=== PATIENT | female | born 1930 | race Caucasian/White ===

== ENCOUNTER 2017-12-19 13:59 | Emergency (ER) | payer MEDICARE, BC ==
[2017-12-19 14:02] VITALS: BP 137/90
[2017-12-19] MEDS ORDERED: Aspirin 81 MG Tab.Chew ONE (14:43)
--- NOTE | 2017-12-19 14:53 | EDM.PDOC ---
ED HPI GENERAL MEDICAL PROBLEM - General Chief Complaint: General Stated Complaint: Weakness Time Seen by Provider: 12/19/17 14:00 Source of Information: Reports: Patient, Provider History Limitations: Reports: No Limitations - History of Present Illness INITIAL COMMENTS - FREE TEXT/NARRATIVE: Patient is a 87-year-old female who is seen in the ER from [facility] with strokelike symptoms nurses state that her last fine was at 12 no then she started having slurred speech droopiness of the right side of the mouth with drooling and right-sided weakness this resolve by the time that she got here at this time her NIH score is 0 we went ahead and got a CAT scan which was negative for bleed and discuss patient care with neurologist at [place] and agreed to take we will go ahead and transfer her to [facility]. Onset: Sudden Duration: Hour(s): (2 hours ago), Resolved Prior to Arrival Location: Reports: Face, Generalized Improves with: Reports: Rest (Result prior to getting) Worsens with: Reports: None Context: Reports: Activity Associated Symptoms: Reports: No Other Symptoms, Other (History of early onset dementia) - Related Data Allergies Allergy/AdvReac Type Severity Reaction Status Date / Time No Known Allergies Allergy Verified 03/07/16 10:13 Home Meds: Home Meds Acetaminophen [Tylenol] 325 mg PO Q4H PRN 06/12/13 [History] Amoxicillin 500 mg PO ONETIME 06/12/13 [History] Cranberry 500 mg PO DAILY 06/12/13 [History] Fish Oil/Eldred-3 Fatty Acids [Fish Oil] 1,000 mg PO DAILY 06/12/13 [History] Furosemide 20 mg PO DAILY 06/12/13 [History] Insulin Glarg,Human.Rec.Analog [Lantus] 40 units SUBCUT BID 06/12/13 [History] Insulin Lispro [Humalog] 35 units SUBCUT TID 06/12/13 [History] Levothyroxine Sodium [Synthroid] 75 mcg PO DAILY 06/12/13 [History] Losartan Potassium 25 mg PO DAILY 06/12/13 [History] Memantine HCl [Namenda] 10 mg PO BID 06/12/13 [History] Pramipexole Di-HCl [Mirapex] 0.25 mg PO BID 06/12/13 [History] Calcium Citrate/Vitamin D3 [Calcium Citrate + D] 2 tab PO DAILY 03/06/16 [ History] Donepezil HCl [Aricept] 10 mg PO BEDTIME 03/06/16 [History] Ferrous Sulfate 325 mg PO DAILY 03/06/16 [History] Multivit-Min/FA/Lycopene/Lut [Centrum Silver Tablet] 1 tab PO DAILY 03/06/16 [ History] PEG 400/Hypromellose/Glycerin [Artificial Tears Drops] 15 ml EYEBOTH Q4HR PRN [History] Hydrochlorothiazide 25 mg PO DAILY 03/07/16 [History] Hydrocodone/Acetaminophen [Hydrocodon-Acetaminophen 5-325] 1 each PO BEDTIME 05/22 [History] Hydrocodone/Acetaminophen [Hydrocodon-Acetaminophen 5-325] 1 each PO Q4H PRN 05/22 [History] Omeprazole Magnesium [Prilosec Otc] 20 mg PO BID 03/07/16 [History] Tolnaftate [Tinactin] 1 applic TP BID PRN 03/07/16 [History] Past Medical History HEENT History: Reports: Impaired Vision Cardiovascular History: Reports: Heart Failure, Hypertension Other Cardiovascular History: Atherosclerosis of Aorta, Chronic Edema Respiratory History: Reports: COPD Gastrointestinal History: Reports: Colon Polyp, GI Bleed, Hemorrhoids Musculoskeletal History: Reports: Arthritis Other Musculoskeletal History: DISH-diffuse idiopathic skeletal hyperostosis Psychiatric History: Reports: Psychosis Endocrine/Metabolic History: Reports: Diabetes, Type II Hematologic History: Reports: Anemia, Iron Deficiency - Infectious Disease History Infectious Disease History: Reports: MRSA - Past Surgical History HEENT Surgical History: Reports: Cataract Surgery Musculoskeletal Surgical History: Reports: Knee Replacement ED ROS GENERAL - Review of Systems Review Of Systems: See Below Constitutional: Reports: Weakness (Right side result) HEENT: Reports: No Symptoms Respiratory: Reports: No Symptoms Cardiovascular: Reports: No Symptoms Endocrine: Reports: No Symptoms GI/Abdominal: Reports: No Symptoms : Reports: No Symptoms Musculoskeletal: Reports: Other (Right-sided weakness) Skin: Reports: No Symptoms Neurological: Reports: Weakness (Right side) Psychiatric: Reports: No Symptoms Hematologic/Lymphatic: Reports: No Symptoms Immunologic: Reports: No Symptoms ED EXAM, GENERAL - Physical Exam Exam: See Below Exam Limited By: Altered Mental Status General Appearance: Alert, WD/WN, No Apparent Distress, Anxious Ears: Normal External Exam, Normal Canal, Hearing Grossly Normal, Normal TMs Ear Exam: Bilateral Ear: Auricle Normal, Canal Normal, TM normal Nose: Normal Inspection, Normal Mucosa, No Blood Throat/Mouth: Normal Inspection, Normal Lips, Normal Teeth, Normal Gums, Normal Oropharynx, Normal Voice, No Airway Compromise Head: Atraumatic Neck: Normal Inspection, Supple, Non-Tender, Full Range of Motion Respiratory/Chest: No Respiratory Distress, Lungs Clear, Normal Breath Sounds, No Accessory Muscle Use, Chest Non-Tender Cardiovascular: Regular Rate, Rhythm, Systolic Murmur (3/6 systolic murmur). No : No Edema GI/Abdominal: Normal Bowel Sounds, Soft, Non-Tender, No Organomegaly, No Distention, No Abnormal Bruit, No Mass (Female) Exam: Deferred Rectal (Female) Exam: Deferred Back Exam: Decreased Range of Motion Extremities: Limited Range of Motion Neurological: Alert, Oriented, CN II-XII Intact Psychiatric: Depressed Mood, Flat Affect Skin Exam: Warm, Dry Course - Vital Signs Last Recorded V/S: Last Vital Signs Temp 97.6 F 12/19/17 14:01 Pulse 81 12/19/17 14:01 Resp 18 12/19/17 14:01 BP 137/90 12/19/17 14:01 Pulse Ox 97 12/19/17 14:01 - Orders/Labs/Meds Orders: Active Orders 24 hr Category Date Time Status Chest 1V Frontal [CR] Routine Exams 12/19/17 Taken Head wo Cont [CT] Routine Exams 12/19/17 Taken CBC WITH AUTO DIFF [HEME] Stat Lab 12/19/17 14:16 Received CKMB [CHEM] Stat Lab 12/19/17 14:16 Received COMPREHENSIVE METABOLIC PN,CMP [CHEM] Stat Lab 12/19/17 14:16 Received CREATINE KINASE,CK [CHEM] Stat Lab 12/19/17 14:16 Received D-DIMER QUANTITATIVE [COAG] Stat Lab 12/19/17 14:16 Received INR,PT,PROTHROMBIN TIME [COAG] Stat Lab 12/19/17 14:16 Received MAGNESIUM [CHEM] Stat Lab 12/19/17 14:16 Received PRO B-TYPE NATRIUR PEPT,BNPPRO [CHEM] Stat Lab 12/19/17 14:16 Received PROLACTIN [REF] Stat Lab 12/19/17 14:16 Received PTT,PARTIAL THROMBOPLSTIN TIME [COAG] Stat Lab 12/19/17 14:16 Received TROPONIN I [CHEM] Stat Lab 12/19/17 14:16 Received Meds: Medications Discontinued Medications Generic Name Dose Route Start Last Admin Trade Name Nathan PRN Reason Stop Dose Admin Aspirin Confirm 12/19/17 14:43 Aspirin Administered 12/19/17 14:44 Dose 324 mg .ROUTE .STK-MED ONE Departure - Departure Time of Disposition: 14:35 Disposition: Home, Self-Care 01 Clinical Impression: TIA (transient ischemic attack), Hyperglycemia - Discharge Information *PRESCRIPTION DRUG MONITORING PROGRAM REVIEWED*: Not Applicable *COPY OF PRESCRIPTION DRUG MONITORING REPORT IN PATIENT ELENI: Not Applicable Instructions: Stroke Prevention, [id number] Referrals: Jesse Michelle MD [Primary Care Provider] - Care Plan Goals: Patient evaluated discuss with neurologist risk of stroke is 8.4% we will go ahead and transfer her to [place] primary care for workup. - My Orders Last 24 Hours: My Active Orders 12/19/17 Chest 1V Frontal [CR] Routine Head wo Cont [CT] Routine 12/19/17 14:16 CBC WITH AUTO DIFF [HEME] Stat CKMB [CHEM] Stat COMPREHENSIVE METABOLIC PN,CMP [CHEM] Stat CREATINE KINASE,CK [CHEM] Stat D-DIMER QUANTITATIVE [COAG] Stat INR,PT,PROTHROMBIN TIME [COAG] Stat MAGNESIUM [CHEM] Stat PRO B-TYPE NATRIUR PEPT,BNPPRO [CHEM] Stat PROLACTIN [REF] Stat PTT,PARTIAL THROMBOPLSTIN TIME [COAG] Stat TROPONIN I [CHEM] Stat - Assessment/Plan Last 24 Hours: My Active Orders 12/19/17 Chest 1V Frontal [CR] Routine Head wo Cont [CT] Routine 12/19/17 14:16 CBC WITH AUTO DIFF [HEME] Stat CKMB [CHEM] Stat COMPREHENSIVE METABOLIC PN,CMP [CHEM] Stat CREATINE KINASE,CK [CHEM] Stat D-DIMER QUANTITATIVE [COAG] Stat INR,PT,PROTHROMBIN TIME [COAG] Stat MAGNESIUM [CHEM] Stat PRO B-TYPE NATRIUR PEPT,BNPPRO [CHEM] Stat PROLACTIN [REF] Stat PTT,PARTIAL THROMBOPLSTIN TIME [COAG] Stat TROPONIN I [CHEM] Stat
[2017-12-19 15:37] LABS: CHLORIDE,CL 101 mmol/L (98-107); SODIUM,NA 141 mmol/L (136-145)
== END 2017-12-19 16:40 ==
LOC: LL.ED 13:59
DX: G45.9 Transient cerebral ischemic attack, unspecified (principal); E11.65 Type 2 diabetes mellitus with hyperglycemia; J44.9 Chronic obstructive pulmonary disease, unspecified; I11.0 Hypertensive heart disease with heart failure; I50.9 Heart failure, unspecified; Z79.899 Other long term (current) drug therapy
CPT/HCPCS: 36000; 36415; 70450; 71045; 80053; 82550; 82553; 83735; 83880; 84146; 84484; 85025; 85379; 85610; 85730; 99285

== ENCOUNTER 2019-03-27 12:28 | Emergency (ER) | payer MEDICARE, BC ==
[2019-03-27] MEDS ORDERED: Sodium Chloride 0.9% 10 ML Syringe FLUSH PRN (12:30)
--- NOTE | 2019-03-27 12:30 | EDM.PDOC ---
ED HPI GENERAL MEDICAL PROBLEM - General Chief Complaint: Gastrointestinal Problem Stated Complaint: GI bleed Time Seen by Provider: 03/27/19 12:30 Source of Information: Reports: Patient, [facility] Records, Old Records ([facility] EMR. No paper hospital chart available.) History Limitations: Reports: Altered Mental Status - History of Present Illness INITIAL COMMENTS - FREE TEXT/NARRATIVE: The patient was brought to the emergency room via transport vehicle from [facility] for evaluation of sudden onset syncopal episode at 08: 00 hours this morning with nursing staff relating this to a vasovagal episode while the patient was on the toilet. Note, however, the patient began having some significant melena and gross hemoptysis with patient refusing transport to this facility this morning until her son requested transfer prior to arrival to our hospital. She is a somewhat poor historian secondary to her baseline organic brain syndrome, which has apparently been stable. She has had some moderate anorexia during the last several months with patient only receiving antacids currently despite distant history of a large gastric ulcer and GI bleed as below. Note current comfort care status. Blood pressure was somewhat decreased prior to patient transfer, including a blood pressure of 85/55, with no apparent recent fall, injury, etc. from the syncopal episode as above. Only limited information received from the sn[facility] both from previous verbal report from the sn[facility] records. No apparent recent chest pain or anginal type symptoms. Patient also denies any recent cough, fever, dyspnea, etc.. She denies any current significant pain or discomfort? Onset: Today, Sudden Onset Date: 03/27/19 Onset Time: 08:00 Duration: Constant Location: Reports: Abdomen. Denies: Head, Face, Neck, Chest, Back, Upper Extremity, Left, Upper Extremity, Right, Radiates to Quality: Reports: Same as Previous Episode Severity: Moderate Improves with: Reports: None Worsens with: Reports: None Context: Reports: Other (As above). Denies: Sick Contact, Trauma Associated Symptoms: Reports: Confusion (Stable as above), Loss of Appetite, Nausea/Vomiting, Syncope. 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: Other (see below) (None) - Related Data Allergies Allergy/AdvReac Type Severity Reaction Status Date / Time No Known Allergies Allergy Verified 03/07/16 10:13 Home Meds: Home Meds Acetaminophen [Tylenol] 325 mg PO Q4H PRN 06/12/13 [History] Amoxicillin 500 mg PO ONETIME 06/12/13 [History] Cranberry 500 mg PO DAILY 06/12/13 [History] Fish Oil/Mcdade-3 Fatty Acids [Fish Oil] 1,000 mg PO DAILY 06/12/13 [History] Furosemide 20 mg PO DAILY 06/12/13 [History] Insulin Glarg,Human.Rec.Analog [Lantus] 40 units SUBCUT BID 06/12/13 [History] Insulin Lispro [Humalog] 35 units SUBCUT TID 06/12/13 [History] Levothyroxine Sodium [Synthroid] 75 mcg PO DAILY 06/12/13 [History] Losartan Potassium 25 mg PO DAILY 06/12/13 [History] Memantine HCl [Namenda] 10 mg PO BID 06/12/13 [History] Pramipexole Di-HCl [Mirapex] 0.25 mg PO BID 06/12/13 [History] Calcium Citrate/Vitamin D3 [Calcium Citrate + D] 2 tab PO DAILY 03/06/16 [ History] Donepezil HCl [Aricept] 10 mg PO BEDTIME 03/06/16 [History] Ferrous Sulfate 325 mg PO DAILY 03/06/16 [History] Multivit-Min/FA/Lycopen/Lutein [Centrum Silver Tablet] 1 tab PO DAILY 03/06/16 [ History] PEG 400/Hypromellose/Glycerin [Artificial Tears Drops] 15 ml EYEBOTH Q4HR PRN [History] Hydrochlorothiazide 25 mg PO DAILY 03/07/16 [History] Hydrocodone/Acetaminophen [Hydrocodon-Acetaminophen 5-325] 1 each PO BEDTIME 05/22 [History] Hydrocodone/Acetaminophen [Hydrocodon-Acetaminophen 5-325] 1 each PO Q4H PRN 05/22 [History] Omeprazole Magnesium [Prilosec Otc] 20 mg PO BID 03/07/16 [History] Tolnaftate [Tinactin] 1 applic TP BID PRN 03/07/16 [History] Past Medical History HEENT History: Reports: Cataract, Impaired Vision, Other (See Below) Other HEENT History: Patient wears glasses. Dry eye syndrome. Cardiovascular History: Reports: Afib, Arrhythmia, CAD, Cardiomyopathy, Heart Failure, Heart Murmur, High Cholesterol, Hypertension. Denies: Aneurysm Other Cardiovascular History: Atherosclerosis of the abdominal Aorta no known previous aneurysm, Chronic dependent Edema/lymphedema. Lateral wall cardiac ischemia by resting EKG. First-degree AV block. Aortic valve stenosis and mitral valve insufficiency by clinical exam. Recurrent diastolic CHF. Respiratory History: Reports: COPD, Intubation, Previous. Denies: Intubation, Difficult Gastrointestinal History: Reports: Chronic Constipation, Colon Polyp, GERD, GI Bleed, Hemorrhoids, Hiatal Hernia, PUD, Other (See Below) Other Gastrointestinal History: Small hiatal hernia and umbilical hernia. 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 Psychiatric History: Reports: Alzheimers Disease, Anxiety, Dementia, Depression , Psychosis, Other (See Below) Other Psychiatric History: Vascular dementia as above. Endocrine/Metabolic History: Reports: Diabetes, Type II, Hypothyroidism, IDDM, Obesity/BMI 30+, Other (See Below) Other Endocrine/Metabolic History: Hypoalbuminemia. Hypokalemia. Hematologic History: Reports: Anemia, Iron Deficiency - Infectious Disease History Infectious Disease History: Reports: MRSA - Past Surgical History HEENT Surgical History: Reports: Cataract Surgery, Oral Surgery, Other (See Below) Other HEENT Surgeries/Procedures: Multiple tooth extractions. Cardiovascular Surgical History: Reports: Other (See Below) Other Cardiovascular Surgeries/Procedures: Loop recorder. GI Surgical History: Reports: Appendectomy, Cholecystectomy, Colonoscopy, EGD, Polypectomy, Other (See Below) Other GI Surgeries/Procedures: Recurrent polypectomies as above. Flexible sigmoidoscopy with rectal polyp removal on 06/22/13. Follow-up colonoscopy with polyp excision on 09/04/13. EGD with concomitant colonoscopy on 03/07/16 with large gastric ulcer with secondary upper GI bleed with additional removal of 2 colonic polyps from the cecum and ascending colon with pathology reports as above. Musculoskeletal Surgical History: Reports: Knee Replacement, Other (See Below) Other Musculoskeletal Surgeries/Procedures:: Left total knee arthroplasty. - Past Imaging History Past Imaging History: Reports: CAT Scan (CT of the abdomen and pelvis on . CT of the head on 12/19/17 and 05/13/11.), MRI (Of the head in December 2017 with acute CVA as above.), Swallow Study (12/27/17) Social & Family History - Living Situation & Occupation Living situation: Reports: Extended Care Facility ([facility] in [place]) ED ROS GENERAL - Review of Systems Review Of Systems: Unable To Obtain Reason Not Obtained: organic brain syndrome. current illness ED EXAM, GI/ABD - Physical Exam Exam: See Below Exam Limited By: No Limitations General Appearance: Alert, WD/WN, No Apparent Distress Eyes: Bilateral: Normal Appearance (No nystagmus. Patient wearing glasses), EOMI (PERRLA) Ears: Normal External Exam, Normal Canal, Hearing Grossly Normal, Normal TMs Nose: Normal Inspection, Normal Mucosa, No Blood Throat/Mouth: Normal Inspection, Normal Lips, Normal Gums, Normal Oropharynx, Normal Voice, No Airway Compromise. No: Normal Teeth (Multiple missing teeth), Dysphagia, Perioral Cyanosis Head: Atraumatic, Normocephalic. No: Facial Swelling, Facial Tenderness, Sinus Tenderness Neck: Supple, Non-Tender, Full Range of Motion, Carotid Bruit (Moderate bilateral carotid bruits versus transmitted heart sounds). No: Lymphadenopathy (L), Lymphadenopathy (R), Thyromegaly Respiratory/Chest: No Respiratory Distress, No Accessory Muscle Use, Chest Non- Tender, Rales (Moderate diffuse bilateral), Rhonchi (Moderate diffuse). No: Wheezing, Pleural Rub, Retractions Cardiovascular: No Gallop, No JVD, No Rub, Tachycardia (Regular rhythm), Systolic Murmur (3/6 SINDY of the aortic and mitral valves). No: Normal Peripheral Pulses (Pedal pulses difficult to assess secondary to her edema), No Edema (Dependent edema as below), Gallop/S3, Gallop/S4, Extra Beats, Friction Rub GI/Abdominal Exam: No Organomegaly, No Distention, No Mass, Pelvis Stable, Tender (Moderate right upper quadrant palpation pain), Abnormal Bowel Sounds ( Mild diffuse increased bowel sounds not high-pitched in nature), Hernia (3 cm umbilical hernianonincarcerated), Other (Moderate obesity with 23/6 SINDY of the midabdominal region with exam difficult for abdominal aortic aneurysm secondary to obesity). No: Guarding, Rigid, Rebound (Female) Exam: Deferred Rectal (Female) Exam: Black Stool, Bloody Stool, Heme + Stool Back Exam: Full Range of Motion. No: Normal Inspection (Mild scoliosis), CVA Tenderness (L), CVA Tenderness (R), Muscle Spasm, Paraspinal Tenderness, Vertebral Tenderness Extremities: Normal Range of Motion, Pedal Edema (Moderate lymphedema of the lower extremities with nonspecific generalized tenderness), Pallor (Moderate diffuse). No: Non-Tender (As below), William's Sign Neurological: Normal Reflexes (Negative Babinski's), Confused (Stable baseline by history), Slow to Respond (Intermittently with initial brief syncopal episode and initial care with no evidence of seizure activity, etc.) Psychiatric: Anxious (Mild), Depressed Mood (Borderline) Skin Exam: Pallor (Moderate). No: Diaphoretic, Ecchymosis, Jaundice, Petechiae , Wound/Incision Lymphatic: No Adenopathy EKG INTERPRETATION EKG Date: 03/27/19 Time: 12:53 Rhythm: NSR Rate (Beats/Min): 96 Manati: LAD-Left Manati Deviation (Extended left cardiac axis) P-Wave: Present QRS: Other (0.13 seconds representing a new complete bifascicular bundle-branch block) ST-T: Other (Increased prominence of previous T-wave inversion in leads 1 and aVL with additional nonspecific ST changes in these leads) QT: Normal MN/PQ Interval: 0.18 seconds representing resolution of previous degree AV block. Left ventricular hypertrophy by voltage. Comparison: Change From Previous EKG (As above since 12/19/17.) EKG Interpretation Comments: 1. Lateral wall cardiac ischemia 2. New complete bifascicular bundle-branch block 3. History of first-degree AV block 4. Left ventricular hypertrophy by voltage. Course - Vital Signs Last Recorded V/S: Last Vital Signs Temp 36.3 C 03/27/19 13:30 Pulse 95 03/27/19 14:45 Resp 18 03/27/19 14:45 BP 80/60 L 03/27/19 14:45 Pulse Ox 98 03/27/19 14:45 Vital Signs - 24 hr 03/27/19 03/27/19 03/27/19 12:35 12:38 13:00 Temperature [ 35.8 C Oral] Pulse, 100 92 95 Peripheral [ Left Pulse Oximetry] Respiratory 24 H 18 14 Rate Blood Pressure 69/18 L 76/58 L [Right Upper Arm] O2 Sat by Pulse 78 L 92 L 99 Oximetry 03/27/19 03/27/19 03/27/19 13:15 13:30 13:45 Temperature [ 36.3 C Oral] Pulse, 99 90 93 Peripheral [ Left Pulse Oximetry] Respiratory 16 18 16 Rate Blood Pressure 72/38 L 64/39 L 68/41 L [Right Upper Arm] O2 Sat by Pulse 99 98 98 Oximetry 03/27/19 03/27/19 03/27/19 14:00 14:15 14:30 Temperature [ Oral] Pulse, 93 99 97 Peripheral [ Left Pulse Oximetry] Respiratory 18 16 18 Rate Blood Pressure 72/45 L 78/55 L 70/56 L [Right Upper Arm] O2 Sat by Pulse 99 99 99 Oximetry 03/27/19 14:45 Temperature [ Oral] Pulse, 95 Peripheral [ Left Pulse Oximetry] Respiratory 18 Rate Blood Pressure 80/60 L [Right Upper Arm] O2 Sat by Pulse 98 Oximetry - Orders/Labs/Meds Orders: Active Orders 24 hr Category Date Time Status EKG Documentation Completion [RC] ASDIRECTED Care 03/27/19 12:40 Active Oxygen Therapy [RC] CONTINUOUS Care 03/27/19 12:34 Active Peripheral IV Care [RC] . DIRECTED Care 03/27/19 12:31 Active Peripheral IV Care [RC] . DIRECTED Care 03/27/19 12:32 Active Nothing Per Oral Diet [DIET] Diet 03/27/19 Breakfast Active Abdomen Series w Chest 1V [CR] Stat Exams 03/27/19 12:30 Taken Norepinephrine [Levophed] 4 mg Med 03/27/19 14:30 Active Dextrose 5% in Water 246 ml IV TITRATE Sodium Chloride 0.9% [Saline Flush] Med 03/27/19 12:30 Active 10 ml FLUSH ASDIRECTED PRN Blood Culture x2 Reflex Set [OM.PC] Stat Oth 03/27/19 13:52 Ordered Obtain Past Medical Record [OM.PC] Urgent Ot 03/27/19 12:30 Active Peripheral IV Insertion Adult [OM.PC] Stat [facility] 03/27/19 12:30 Ordered Saline Lock Insert [OM.PC] Stat [facility] 03/27/19 13:52 Ordered Severe Sepsis Onset Time [OM.PC] Stat [facility] 03/27/19 13:52 Ordered Transfuse RBC [Transfuse Red Blood Cells] [COMM] [facility] 03/27/19 12:57 Ordered Routine Resuscitation Status Stat [facility] 03/27/19 12:30 Ordered Medication Orders Norepinephrine Bitartrate 4 mg (/ Dextrose/Water) 250 mls @ 7.5 mls/hr IV TITRATE WAYNE; Protocol Sodium Chloride (Saline Flush) 10 ml FLUSH ASDIRECTED PRN PRN Reason: Keep Vein Open Labs: Laboratory Tests 03/27/19 03/27/19 03/27/19 Range/Units 12:50 12:50 12:50 WBC 14.4 H (4.0-10.2) K/uL RBC 2.93 L (3.77-5.09) M/uL Hgb 7.2 L* (11.7-15.5) g/dL Hct 24.8 L* (34.0-46.0) % MCV 84.6 D (84.0-98.0) fL MCH 24.6 L (28.2-33.3) pg MCHC 29.0 L (31.7-36.0) g/dL RDW 17.0 H (11.2-14.1) % Plt Count 330 D (150-350) K/uL Neut % (Auto) 79.0 (45.0-80.0) % Lymph % (Auto) 13.2 (10.0-50.0) % Parker % (Auto) 7.6 (2.0-14.0) % Eos % (Auto) 0.1 (0.0-5.0) % Baso % (Auto) 0.1 (0.0-2.0) % Neut # (Auto) 11.39 H (1.40-7.00) K/uL Lymph # (Auto) 1.91 (0.50-3.50) K/uL Parker # (Auto) 1.09 H (0.00-1.00) K/uL Eos # (Auto) 0.01 (0.00-0.50) K/uL Baso # (Auto) 0.02 (0.00-0.20) K/uL PT 17.4 H (9.5-12.0) SEC INR 1.6 APTT 33.6 H (21.0-31.3) SEC Sodium (136-145) mmol/L Potassium (3.5-5.1) mmol/L Chloride (98-107) mmol/L Carbon Dioxide (21.0-32.0) mmol/L BUN (7-18) mg/dL Creatinine (0.51-1.17) mg/dL Est Cr Clr Drug Dosing Estimated GFR (MDRD) mL/min Glucose (74-106) mg/dL Lactic Acid (0.4-2.0) mmol/L Uric Acid (2.6-7.2) mg/dL Calcium (8.5-10.1) mg/dL Magnesium (1.8-2.4) mg/dL Total Bilirubin (0.2-1.0) mg/dL AST (15-37) U/L ALT (12-78) U/L Alkaline Phosphatase (46-116) IU/L Creatine Kinase (26-308) U/L Creatine Kinase Index (0.0-2.5) % CK-MB (CK-2) (0.00-3.60) ng/mL Troponin I (0.000-0.056) ng/mL NT-Pro-B Natriuret Pep (0-125) pg/mL Total Protein (6.4-8.2) g/dL Albumin (3.4-5.0) g/dL Amylase 37 (25-115) U/L Lipase (73-393) U/L Blood Type Gel Antibody Screen Antibody Identification Crossmatch 03/27/19 03/27/19 03/27/19 Range/Units 12:50 12:50 12:50 WBC (4.0-10.2) K/uL RBC (3.77-5.09) M/uL Hgb (11.7-15.5) g/dL Hct (34.0-46.0) % MCV (84.0-98.0) fL MCH (28.2-33.3) pg MCHC (31.7-36.0) g/dL RDW (11.2-14.1) % Plt Count (150-350) K/uL Neut % (Auto) (45.0-80.0) % Lymph % (Auto) (10.0-50.0) % Parker % (Auto) (2.0-14.0) % Eos % (Auto) (0.0-5.0) % Baso % (Auto) (0.0-2.0) % Neut # (Auto) (1.40-7.00) K/uL Lymph # (Auto) (0.50-3.50) K/uL Parker # (Auto) (0.00-1.00) K/uL Eos # (Auto) (0.00-0.50) K/uL Baso # (Auto) (0.00-0.20) K/uL PT (9.5-12.0) SEC INR APTT (21.0-31.3) SEC Sodium 133 L (136-145) mmol/L Potassium 4.7 (3.5-5.1) mmol/L Chloride 93 L (98-107) mmol/L Carbon Dioxide 25.3 (21.0-32.0) mmol/L BUN 62 H D (7-18) mg/dL Creatinine 1.97 H (0.51-1.17) mg/dL Est Cr Clr Drug Dosing TNP Estimated GFR (MDRD) 24 mL/min Glucose 258 H (74-106) mg/dL Lactic Acid 6.3 H (0.4-2.0) mmol/L Uric Acid 9.9 H (2.6-7.2) mg/dL Calcium 9.0 (8.5-10.1) mg/dL Magnesium 2.4 (1.8-2.4) mg/dL Total Bilirubin 0.4 (0.2-1.0) mg/dL AST 26 (15-37) U/L ALT 23 (12-78) U/L Alkaline Phosphatase 96 (46-116) IU/L Creatine Kinase (26-308) U/L Creatine Kinase Index (0.0-2.5) % CK-MB (CK-2) (0.00-3.60) ng/mL Troponin I (0.000-0.056) ng/mL NT-Pro-B Natriuret Pep (0-125) pg/mL Total Protein 7.1 (6.4-8.2) g/dL Albumin 2.4 L (3.4-5.0) g/dL Amylase (25-115) U/L Lipase 161 (73-393) U/L Blood Type A POSITIVE Gel Antibody Screen Positive Antibody Identification Cancelled Crossmatch See Detail 03/27/19 03/27/19 Range/Units 12:50 13:00 WBC (4.0-10.2) K/uL RBC (3.77-5.09) M/uL Hgb (11.7-15.5) g/dL Hct (34.0-46.0) % MCV (84.0-98.0) fL MCH (28.2-33.3) pg MCHC (31.7-36.0) g/dL RDW (11.2-14.1) % Plt Count (150-350) K/uL Neut % (Auto) (45.0-80.0) % Lymph % (Auto) (10.0-50.0) % Parker % (Auto) (2.0-14.0) % Eos % (Auto) (0.0-5.0) % Baso % (Auto) (0.0-2.0) % Neut # (Auto) (1.40-7.00) K/uL Lymph # (Auto) (0.50-3.50) K/uL Parker # (Auto) (0.00-1.00) K/uL Eos # (Auto) (0.00-0.50) K/uL Baso # (Auto) (0.00-0.20) K/uL PT (9.5-12.0) SEC INR APTT (21.0-31.3) SEC Sodium (136-145) mmol/L Potassium (3.5-5.1) mmol/L Chloride (98-107) mmol/L Carbon Dioxide (21.0-32.0) mmol/L BUN (7-18) mg/dL Creatinine (0.51-1.17) mg/dL Est Cr Clr Drug Dosing Estimated GFR (MDRD) mL/min Glucose (74-106) mg/dL Lactic Acid (0.4-2.0) mmol/L Uric Acid (2.6-7.2) mg/dL Calcium (8.5-10.1) mg/dL Magnesium (1.8-2.4) mg/dL Total Bilirubin (0.2-1.0) mg/dL AST (15-37) U/L ALT (12-78) U/L Alkaline Phosphatase (46-116) IU/L Creatine Kinase 198 (26-308) U/L Creatine Kinase Index 1.1 (0.0-2.5) % CK-MB (CK-2) 2.10 (0.00-3.60) ng/mL Troponin I 0.094 H* (0.000-0.056) ng/mL NT-Pro-B Natriuret Pep 663 H (0-125) pg/mL Total Protein (6.4-8.2) g/dL Albumin (3.4-5.0) g/dL Amylase (25-115) U/L Lipase (73-393) U/L Blood Type Gel Antibody Screen Antibody Identification Crossmatch Microbiology 03/27/19 13:15 Stool Occult Blood (VIRGIL) - Final Stool / Feces Hemoccult positive Meds: Medications Generic Name Dose Route Start Last Admin Trade Name Freq PRN Reason Stop Dose Admin Norepinephrine Bitartrate 4 mg 250 mls @ 7.5 mls/hr 03/27/19 14:30 / Dextrose/Water IV TITRATE WAYNE Protocol 2 MCG/MIN Sodium Chloride 10 ml 03/27/19 12:30 Saline Flush FLUSH ASDIRECTED PRN Keep Vein Open Discontinued Medications Generic Name Dose Route Start Last Admin Trade Name Freq PRN Reason Stop Dose Admin Famotidine 40 mg 03/27/19 12:30 03/27/19 12:51 Pepcid IVPUSH 03/27/19 12:31 40 mg ONETIME ONE Administration Lactated Ringer's 1,000 mls @ 999 mls/hr 03/27/19 12:30 03/27/19 12:57 Ringers, Lactated IV 03/27/19 13:30 Not Given .BOLUS ONE Phytonadione 10 mg/ Sodium 51 mls @ 100 mls/hr 03/27/19 12:32 03/27/19 12:51 Chloride IV 03/27/19 13:02 100 mls/hr NOW ONE Administration Sodium Chloride 1,000 mls @ 999 mls/hr 03/27/19 12:38 03/27/19 12:50 Normal Saline IV 03/27/19 13:38 999 mls/hr .BOLUS ONE Administration Ceftriaxone Sodium 1 gm/ 100 mls @ 200 mls/hr 03/27/19 13:52 Sodium Chloride IV 03/27/19 14:21 STAT ONE Vancomycin HCl 1 gm/ Sodium 250 mls @ 165 mls/hr 03/27/19 13:52 Chloride IV 03/27/19 15:22 ONETIME ONE Lidocaine HCl Confirm 03/27/19 14:12 Lidocaine Hcl 2% Administered 03/27/19 14:13 Dose 11 ml .ROUTE .STK-MED ONE Ondansetron HCl 4 mg 03/27/19 12:30 03/27/19 12:53 Zofran IVPUSH 03/27/19 12:31 4 mg ONETIME ONE Administration Pantoprazole Sodium 40 mg 03/27/19 12:30 03/27/19 12:57 Protonix Iv IVPUSH 03/27/19 12:31 40 mg ONETIME ONE Administration - Radiology Interpretation Free Text/Narrative:: personnel monitor initially in the low 100s with no ectopy or arrhythmia with improvement to the 80-90s prior to transfer. Note brief sinus tachycardia in the 110s with collection of UA sample. Acute abdominal x-rays, portable, shows evidence of moderate cardiomegaly, prominence of the proximal aortic arch, and aortic valve calcification with borderline mild centralized CHF versus pulmonary hypertension. Moderate COPD changes with no definite pulmonary infiltrates, pneumothorax, etc.. Mild scoliosis with moderate osteoarthritic changes. Loop recorder device noted. Departure - Departure Time of Disposition: 15:00 Disposition: DC/Tfer to Acute Hospital 02 Condition: Serious Clinical Impression: Acute upper GI bleeding, Peptic ulcer disease, Elevated lactic acid level, Hypoalbuminemia, Bifascicular bundle branch block, Confusion, IDDM (insulin dependent diabetes mellitus), Renal insufficiency, Cardiac murmur, Hyponatremia , Comfort measures only status, Hyperuricemia Colonic polyp Qualifiers: Colon polyp type: adenomatous Colon location: unspecified part of colon Qualified Code(s): D12.6 - Benign neoplasm of colon, unspecified Iron deficiency anemia Qualifiers: Iron deficiency anemia type: other iron deficiency Qualified Code(s): D50.8 - Other iron deficiency anemias Coronary artery disease Qualifiers: Coronary Disease-Associated Artery/Lesion type: [place] artery [place] vs. transplanted heart: [place] heart Associated angina: without angina Qualified Code(s): I25.10 - Atherosclerotic heart disease of [place] coronary artery without angina pectoris - Discharge Information *PRESCRIPTION DRUG MONITORING PROGRAM REVIEWED*: Not Applicable *COPY OF PRESCRIPTION DRUG MONITORING REPORT IN PATIENT ELENI: Not Applicable Referrals: Jesse Michelle MD [Primary Care Provider] - Forms: ED Department Discharge, Interfacility Transfer EMTALA - Problem List & Annotations (1) Acute upper GI bleeding SNOMED Code(s): 14628144 Code(s): K92.2 - GASTROINTESTINAL HEMORRHAGE, UNSPECIFIED Status: Acute Priority: High Current Visit: Yes Onset Date: 03/27/19 Annotation/Comment: : Significant acute upper GI bleed as above with estimated acute blood loss of at least 2 units based on blood clots, etc. at time of patient's arrival to our facility. Initial telephone consultation and then consultation in person with the patient's son and POA, Mert, who is requesting further aggressive care, including transfer to [place]. He is also in agreement with blood transfusion and fresh frozen plasma. Significant hypotension and some mild initial brief near syncope at time of patient's arrival to this facility with some initially improved blood pressure with aggressive therapy as below. She did immediately receive 10 mg of IV vitamin K and a 1 L bolus of normal saline. Note that an anesthetia nurse did need to help us with obtaining IV access 2. Telephone consultations with [facility] in [place] initially at 14:05 hours with subsequent acceptance of the patient for direct admission into the ICU by Dr. Moya, sound equipment mechanic, with no further treatment recommendations given. Ambulance transfer with tour escort accompaniment. Note the patient's systolic blood pressure did decrease into the 70s prior to transfer with initiation of IV norepinephrine drip prior to transfer. Otherwise patient was relatively stable with no recurrence of her GI bleed prior to transfer. She did require O2 supplementation secondary to some hypoxia. IV fresh frozen plasma was infused during emergency room care with patient having blood antibodies and ordered blood transfusion not able to be conducted in this facility. IV fluids are to be continued in route after completion of IV Rocephin. Note high-dose IV Pepcid and IV Protonix were given upon patient's arrival to this facility. Consider GI consult for emergent EGD. Note that one IV access was lost prior to patient transfer. Note abdominal bruit during today's exam, however cannot rule out abdominal aneurysm today secondary to patient's obesity. Consider abdominal aortic ultrasound. (2) Bifascicular bundle branch block SNOMED Code(s): 52585183 Code(s): I45.2 - BIFASCICULAR BLOCK Status: Acute Priority: High Current Visit: Yes Onset Date: 03/27/19 Annotation/Comment:: New Bifascicular bundle-branch block with previously known first-degree AV block and atrial fibrillation, which are resolved at this time. Her Coumadin therapy is subtherapeutic with INR 1.6 prior to administration of IV vitamin K as above. Secondary to recurrent upper GI bleed recommend discontinuation of Coumadin on a permanent basis. No chest pain or anginal type symptoms, although patient is a poor historian. Mild increase of her troponin I secondary to her renal insufficiency and known chronic diastolic CHF. Continue IV fluids with caution. Per history from her son no known previous MIs or cardiac procedures. (3) Cardiac murmur SNOMED Code(s): 54257412 Code(s): R01.1 - CARDIAC MURMUR, UNSPECIFIED Status: Acute Priority: Medium Current Visit: Yes Onset Date: ~03/27/19 Annotation/Comment:: Cardiac murmurs not previously documented in our medical records. Moderate aortic valve stenosis and mitral valve insufficiency by today's clinical exam. Consider echocardiogram, cardiology consultation, etc. pending on her clinical status. Note NO CODE STATUS. (4) Colonic polyp SNOMED Code(s): 66937276 Code(s): K63.5 - POLYP OF COLON Status: Chronic Priority: Medium Current Visit: Yes Annotation/Comment:: History of recurrent colonic polyps as above. Note significant melena today but no direct evidence of acute lower GI bleed. 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 Stable neurological status both prior to arrival and during emergency room care. Continue to observe closely by accepting providers. (6) Coronary artery disease SNOMED Code(s): 09600408 Code(s): I25.10 - ATHSCL HEART DISEASE OF [place] CORONARY ARTERY W/O ANG PCTRS Status: Chronic Priority: Medium Current Visit: Yes Annotation/ Comment:: As above. Consider routine rule out IN orders. Qualifiers: Coronary Disease-Associated Artery/Lesion type: [place] artery [place] vs. transplanted heart: [place] heart Associated angina: without angina Qualified Code(s): I25.10 - Atherosclerotic heart disease of [place] coronary artery without angina pectoris (7) Elevated lactic acid level SNOMED Code(s): 8217543 Code(s): R79.89 - OTHER SPECIFIED ABNORMAL FINDINGS OF BLOOD CHEMISTRY Status: Acute Priority: High Current Visit: Yes Onset Date: 03/27/19 Annotation/Comment:: She is afebrile, however note hypotension, tachycardia, and moderate leukocytosis. Sepsis order set was ordered, including subsequent vasopressor therapy/order set as above. Note that some overlapping from initial orders and order sets as above. Unable to obtain ordered blood cultures 2 or quick catheter UA during emergency room care, however IV Rocephin therapy was initiated in the emergency room. Close follow-up during ICU care as above. (8) Hypoalbuminemia SNOMED Code(s): 123713519 Code(s): E88.09 - OTH DISORDERS OF PLASMA-PROTEIN METABOLISM, NEC Status: Chronic Priority: Medium Current Visit: Yes Annotation/Comment:: Previously known. Observe for now (9) Hyponatremia SNOMED Code(s): 33458387 Code(s): E87.1 - HYPO-OSMOLALITY AND HYPONATREMIA Status: Acute Priority : Medium Current Visit: Yes Onset Date: 03/27/19 Annotation/Comment:: Note normal saline IV as above. Probable mild CHF with known diastolic dysfunction. (10) IDDM (insulin dependent diabetes mellitus) SNOMED Code(s): 00214688 Code(s): E11.9 - TYPE 2 DIABETES MELLITUS WITHOUT COMPLICATIONS; Z79.4 - GROUP THERAPIST (CURRENT) USE OF INSULIN Status: Chronic Priority: Medium Current Visit: Yes Annotation/Comment:: Sugars somewhat elevated on arrival. Continue to observe closely by accepting providers. (11) Iron deficiency anemia SNOMED Code(s): 82829344 Code(s): D50.9 - IRON DEFICIENCY ANEMIA, UNSPECIFIED Status: Chronic Priority: Medium Current Visit: Yes Annotation/Comment:: Known chronic iron deficiency anemia with current iron supplementation. 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 Continue to observe closely. IV vancomycin was ordered, however could not be initiated prior to patient transfer. (14) Comfort measures only status SNOMED Code(s): 45600828272098 Code(s): Z51.5 - ENCOUNTER FOR PALLIATIVE CARE Status: Chronic Priority: High Current Visit: Yes Annotation/Comment:: Comfort/palliative care confirmed with the patient's son and POA during emergency room care. He is requesting further treatment and transfer as above, however. (15) Hyperuricemia SNOMED Code(s): 03554892 Code(s): E79.0 - HYPERURICEMIA W/O SIGNS OF INFLAM ARTHRIT AND TOPHACEOUS DIS Status: Acute Priority: Medium Current Visit: Yes Onset Date: Annotation/Comment:: Observe for now. No acute gout-type symptoms. - Problem List Review Problem List Initiated/Reviewed/Updated: Yes - My Orders Last 24 Hours: My Active Orders 03/27/19 12:30 Abdomen Series w Chest 1V [CR] Stat Sodium Chloride 0.9% [Saline Flush] 10 ml FLUSH ASDIRECTED PRN Obtain Past Medical Record [OM.PC] Urgent Peripheral IV Insertion Adult [OM.PC] Stat Resuscitation Status Stat 03/27/19 12:31 Peripheral IV Care [RC] . DIRECTED 03/27/19 12:32 Peripheral IV Care [RC] . DIRECTED 03/27/19 12:34 Oxygen Therapy [RC] CONTINUOUS 03/27/19 12:40 EKG Documentation Completion [RC] ASDIRECTED 03/27/19 12:57 Transfuse RBC [Transfuse Red Blood Cells] [COMM] Routine 03/27/19 13:52 Blood Culture x2 Reflex Set [OM.PC] Stat Saline Lock Insert [OM.PC] Stat Severe Sepsis Onset Time [OM.PC] Stat 03/27/19 14:30 Norepinephrine [Levophed] 4 mg Dextrose 5% in Water 246 ml IV TITRATE 03/27/19 Breakfast Nothing Per Oral Diet [DIET] - Assessment/Plan Last 24 Hours: My Active Orders 03/27/19 12:30 Abdomen Series w Chest 1V [CR] Stat Sodium Chloride 0.9% [Saline Flush] 10 ml FLUSH ASDIRECTED PRN Obtain Past Medical Record [OM.PC] Urgent Peripheral IV Insertion Adult [OM.PC] Stat Resuscitation Status Stat 03/27/19 12:31 Peripheral IV Care [RC] . DIRECTED 03/27/19 12:32 Peripheral IV Care [RC] . DIRECTED 03/27/19 12:34 Oxygen Therapy [RC] CONTINUOUS 03/27/19 12:40 EKG Documentation Completion [RC] ASDIRECTED 03/27/19 12:57 Transfuse RBC [Transfuse Red Blood Cells] [COMM] Routine 03/27/19 13:52 Blood Culture x2 Reflex Set [OM.PC] Stat Saline Lock Insert [OM.PC] Stat Severe Sepsis Onset Time [OM.PC] Stat 03/27/19 14:30 Norepinephrine [Levophed] 4 mg Dextrose 5% in Water 246 ml IV TITRATE 03/27/19 Breakfast Nothing Per Oral Diet [DIET] Assessment:: As above Plan: As above. Extensive precautions were given to the patient and her son, who are in agreement with the treatment plan. Ambulance transfer with tour escort accompaniment.
[2019-03-27] MEDS: Sodium Chloride 0.9% 1,000 ML IV ONE (12:50)
[2019-03-27] MEDS: Famotidine 20 MG/2 ML SDV IVPUSH ONE (12:51)
[2019-03-27] MEDS: Phytonadione 10 MG in Sodium Chloride 0.9% 50 ML IV ONE (12:51)
[2019-03-27] MEDS: Ondansetron 4 MG/2 ML SDV IVPUSH ONE (12:53)
[2019-03-27] MEDS: Pantoprazole 40 MG Vial IVPUSH ONE (12:57)
[2019-03-27] MEDS: Lactated Ringers 1,000 ML IV ONE (12:57)
[2019-03-27 13:26] LABS: CHLORIDE,CL 93 mmol/L (98-107); SODIUM,NA 133 mmol/L (136-145)
[2019-03-27] MEDS ORDERED: cefTRIAXone 1 GM in Sodium Chloride 0.9% 100 ML IV ONE (13:52)
[2019-03-27] MEDS ORDERED: Norepinephrine 4 MG in Dextrose 5% in Water 246 ML IV SCH ×2 (14:30)
[2019-03-27] MEDS: Lidocaine 2% HCl 11 ML Jelly Filled Syringe ONE (15:00)
[2019-03-27 15:50] VITALS: BP 80/60; PULSE 95
== END 2019-03-27 15:00 ==
LOC: LL.ED 12:28
DX: K92.2 Gastrointestinal hemorrhage, unspecified (principal); K63.5 Polyp of colon; I45.2 Bifascicular block; E87.1 Hypo-osmolality and hyponatremia; D12.6 Benign neoplasm of colon, unspecified; D50.8 Other iron deficiency anemias; I25.10 Atherosclerotic heart disease of native coronary artery without angina pectoris; K27.9 Peptic ulcer, site unspecified, unspecified as acute or chronic, without hemorrhage or perforation; E79.0 Hyperuricemia without signs of inflammatory arthritis and tophaceous disease; I11.0 Hypertensive heart disease with heart failure; I50.9 Heart failure, unspecified; E03.9 Hypothyroidism, unspecified; G30.9 Alzheimer's disease, unspecified; F02.80 Dementia in other diseases classified elsewhere, unspecified severity, without behavioral disturbance, psychotic disturbance, mood disturbance, and anxiety; Z79.4 Long term (current) use of insulin; Z79.899 Other long term (current) drug therapy
CPT/HCPCS: 36415; 36430; 74022; 80053; 82150; 82272; 82550; 82553; 83605; 83690; 83735; 83880; 84484; 84550; 85025; 85610; 85730; 86850; 86900; 86901; 93005; 94761; 96361; 96365; 96367; 96375; 99285; C9113; J0696; J2405; J3430; J3490; J7030; J7050; J7060; P9017; 99284

== ENCOUNTER 2022-10-14 00:55 | Emergency (ER) | payer MEDICARE, BC ==
[2022-10-14] MEDS ORDERED: Ondansetron 4 MG/2 ML SDV IVPUSH PRN (01:07)
[2022-10-14 01:15] LABS: BASOPHILS ABSOLUTE AUTO 0.02 K/uL (0.00-0.20); BASOPHILS PERCENT AUTO 0.2 % (0.0-2.0); EOSINOPHILS ABSOLUTE AUTO 0.06 K/uL (0.00-0.50); EOSINOPHILS PERCENT AUTO 0.5 % (0.0-5.0); HEMATOCRIT 37.7 % (34.0-46.0); HEMOGLOBIN 12.8 g/dL (11.7-15.5); LYMPHOCYTES ABSOLUTE AUTO 2.71 K/uL (0.50-3.50); MEAN CORPUSCULAR HEMOGLOBIN 30.8 pg (28.2-33.3); MEAN CORPUSCULAR VOLUME 90.6 fL (84.0-98.0); MONOCYTES ABSOLUTE AUTO 0.78 K/uL (0.00-1.00); MONOCYTES PERCENT AUTO 6.3 % (2.0-14.0); NEUTROPHILS ABSOLUTE AUTO 8.74 K/uL (1.40-7.00); PLATELET COUNT,PLT 154 K/uL (150-350); RED BLOOD CELL COUNT 4.16 M/uL (3.77-5.09); RED CELL DISTRIBUTION WIDTH 12.2 % (11.2-14.1); WHITE BLOOD CELL COUNT,WBC 12.3 K/uL (4.0-10.2)
[2022-10-14] MEDS: Sodium Chloride 0.9% 10 ML Syringe FLUSH PRN ×2 (01:15→03:28)
[2022-10-14] MEDS: HYDROmorphone 0.5 MG/0.5 ML Syringe IVPUSH PRN ×2 (01:15→03:25)
[2022-10-14 01:34] LABS: ALANINE AMINOTRANSFERASE,ALT 19 U/L (12-78); ALBUMIN 2.6 g/dL (3.4-5.0); ALKALINE PHOSPHATASE 94 IU/L (46-116); ANION GAP 13.8 meq/L (7-15); ASPARTATE AMNIOTRANSFERASE,AST 21 U/L (15-37); BILIRUBIN TOTAL 0.8 mg/dL (0.2-1.0); BLOOD UREA NITROGEN,BUN 17 mg/dL (7-18); CALCIUM 7.7 mg/dL (8.5-10.1); CARBON DIOXIDE,CO2 27.2 mmol/L (21.0-32.0); CHLORIDE,CL 102 mmol/L (98-107); CREATININE 0.92 mg/dL (0.51-1.17); ESTIMATED GFR 60 mL/min (>=60); GLUCOSE RANDOM 250 mg/dL (70-99); SODIUM,NA 140 mmol/L (136-145)
[2022-10-14 02:56] LABS: APPEARANCE,URINE SLIGHTLY CLOUDY; BILIRUBIN,URINE NEGATIVE (NEGATIVE); COLOR,URINE YELLOW; GLUCOSE,URINE 100 mg/dL (NEGATIVE); KETONES,URINE NEGATIVE (NEGATIVE); LEUKOCYTE ESTERASE,URINE LARGE (NEGATIVE); NITRITE,URINE NEGATIVE (NEGATIVE); OCCULT BLOOD,URINE TRACE-LYSED (NEGATIVE); PH,URINE 5.5 (5.0-9.0); PROTEIN,URINE NEGATIVE (NEGATIVE); UROBILINOGEN,URINE 0.2 E.U./dL (0.2-1.0)
[2022-10-14 03:01] LABS: RBC,URINE 0-5 /HPF
[2022-10-14 03:02] LABS: BACTERIA,URINE MODERATE /HPF (NONE TO FEW); EPITHELIAL CELLS,URINE NOT SEEN /LPF; WBC,URINE 50-75 /HPF
[2022-10-14 04:41] VITALS: BP 119/51; PULSE 99
== END 2022-10-14 03:30 ==
LOC: LL.ED 00:55 → SUPCPDRO 00:55 → LL.ED 03:30
DX: S72.042A Displaced fracture of base of neck of left femur, initial encounter for closed fracture (principal); I25.10 Atherosclerotic heart disease of native coronary artery without angina pectoris; I11.0 Hypertensive heart disease with heart failure; I50.9 Heart failure, unspecified; E78.00 Pure hypercholesterolemia, unspecified; J44.9 Chronic obstructive pulmonary disease, unspecified; E03.9 Hypothyroidism, unspecified; E11.9 Type 2 diabetes mellitus without complications; E66.9 Obesity, unspecified; Z68.41 Body mass index [BMI] 40.0-44.9, adult; Z79.899 Other long term (current) drug therapy; Z79.4 Long term (current) use of insulin; Z90.49 Acquired absence of other specified parts of digestive tract; W17.89XA Other fall from one level to another, initial encounter
CPT/HCPCS: 36415; 51702; 80053; 81001; 85025; 87086; 87088; 87186; 96374; 96375; 96376; 99284; 99285-25; J1170; J2405; J3490

== ENCOUNTER 2022-11-06 15:18 | Inpatient (IN) | payer MEDICARE, BC ==
[2022-11-06 15:48] LABS: BASOPHILS ABSOLUTE AUTO 0.02 K/uL (0.00-0.20); BASOPHILS PERCENT AUTO 0.2 % (0.0-2.0); EOSINOPHILS ABSOLUTE AUTO 0.16 K/uL (0.00-0.50); HEMATOCRIT 34.9 % (34.0-46.0); HEMOGLOBIN 10.6 g/dL (11.7-15.5); LYMPHOCYTES ABSOLUTE AUTO 1.79 K/uL (0.50-3.50); LYMPHOCYTES PERCENT AUTO 22.1 % (10.0-50.0); MEAN CORPUSCULAR HEMOGLOBIN 29.9 pg (28.2-33.3); MEAN CORPUSCULAR HGB CONC 30.4 g/dL (31.7-36.0); MEAN CORPUSCULAR VOLUME 98.3 fL (84.0-98.0); MONOCYTES ABSOLUTE AUTO 0.85 K/uL (0.00-1.00); MONOCYTES PERCENT AUTO 10.5 % (2.0-14.0); NEUTROPHILS ABSOLUTE AUTO 5.28 K/uL (1.40-7.00); NEUTROPHILS PERCENT AUTO 65.2 % (45.0-80.0); PLATELET COUNT,PLT 250 K/uL (150-350); RED BLOOD CELL COUNT 3.55 M/uL (3.77-5.09); RED CELL DISTRIBUTION WIDTH 15.7 % (11.2-14.1); WHITE BLOOD CELL COUNT,WBC 8.1 K/uL (4.0-10.2)
[2022-11-06 16:01] LABS: ALBUMIN 2.3 g/dL (3.4-5.0); ALKALINE PHOSPHATASE 264 IU/L (46-116); ANION GAP 5.2 meq/L (7-15); ASPARTATE AMNIOTRANSFERASE,AST 43 U/L (15-37); BILIRUBIN TOTAL 0.7 mg/dL (0.2-1.0); BLOOD UREA NITROGEN,BUN 20 mg/dL (7-18); CALCIUM 8.6 mg/dL (8.5-10.1); CARBON DIOXIDE,CO2 26.8 mmol/L (21.0-32.0); CHLORIDE,CL 107 mmol/L (98-107); CREATININE 0.93 mg/dL (0.51-1.17); POTASSIUM,K 4.3 mmol/L (3.5-5.1); PRO B-TYPE NATRIUR PEPT,BNPPRO 2314 pg/mL (0-125); SODIUM,NA 139 mmol/L (136-145)
[2022-11-06 16:06] LABS: ESTIMATED GFR 59 mL/min (>=60)
[2022-11-06 16:07] LABS: GLUCOSE RANDOM 43 mg/dL (70-99)
[2022-11-06] MEDS ORDERED: Glucagon,Human Recombinant 1 MG Vial IVPUSH ONE (16:09)
[2022-11-06 16:26] LABS: PROTHROMBIN TIME 10.3 SEC (9.0-11.1)
[2022-11-06] MEDS ORDERED: 50% Dextrose in Water 50 ML Syringe IVPUSH ONE ×2 (16:27→19:35)
[2022-11-06] MEDS ORDERED: Furosemide 40 MG/4 ML VIAL IVPUSH ONE ×2 (17:48→23:43)
[2022-11-06 17:56] LABS: APPEARANCE,URINE SLIGHTLY CLOUDY; BILIRUBIN,URINE NEGATIVE (NEGATIVE); COLOR,URINE DARK YELLOW; GLUCOSE,URINE NEGATIVE (NEGATIVE); KETONES,URINE NEGATIVE (NEGATIVE); LEUKOCYTE ESTERASE,URINE SMALL (NEGATIVE); NITRITE,URINE NEGATIVE (NEGATIVE); OCCULT BLOOD,URINE TRACE-INTACT (NEGATIVE); PH,URINE 5.5 (5.0-9.0); PROTEIN,URINE TRACE mg/dL (NEGATIVE); UROBILINOGEN,URINE 0.2 E.U./dL (0.2-1.0)
[2022-11-06 18:00] LABS: RBC,URINE 0-5 /HPF
[2022-11-06 18:01] LABS: BACTERIA,URINE FEW /HPF (NONE TO FEW); EPITHELIAL CELLS,URINE FEW /LPF; YEAST,URINE FEW /HPF (NEGATIVE)
[2022-11-06 19:44] LABS: ANION GAP 7.3 meq/L (7-15); CALCIUM 8.6 mg/dL (8.5-10.1); CARBON DIOXIDE,CO2 26.7 mmol/L (21.0-32.0); CREATININE 0.98 mg/dL (0.51-1.17); EST CRCL DRUG DOSING (CG) 27.95 mL/min; POTASSIUM,K 3.9 mmol/L (3.5-5.1)
[2022-11-07] MEDS ORDERED: Bisacodyl 5 MG Tab PO PRN (00:54)
[2022-11-07] MEDS ORDERED: oxyCODONE 5 MG Tab PO PRN (00:54)
[2022-11-07] MEDS ORDERED: Non-Formulary Medication 1 Each SUBCUT SCH (01:00)
[2022-11-07] MEDS ORDERED: 50% Dextrose in Water 50 ML Syringe IV PRN (01:11)
[2022-11-07] MEDS: Enoxaparin 30 MG/0.3 ML Syringe SUBCUT SCH (07:52)
[2022-11-07] MEDS: Furosemide 40 MG/4 ML VIAL IVPUSH SCH (07:52)
[2022-11-07] MEDS: Zinc (Zinc Gluconate) 50 MG Tab PO SCH (07:55)
[2022-11-07] MEDS: Memantine 10 MG Tab PO SCH ×2 (07:55→18:18)
[2022-11-07] MEDS: Pramipexole 0.125 MG Tab PO SCH ×2 (07:55→20:40)
[2022-11-07] MEDS: Multivitamin Tab PO SCH (07:55)
[2022-11-07] MEDS: Ferrous Sulfate 325 MG Tab PO SCH (07:55)
[2022-11-07] MEDS: Docusate Sodium 100 MG Cap PO SCH (07:55)
[2022-11-07 07:58] LABS: ANION GAP 4.5 meq/L (7-15); CALCIUM 8.3 mg/dL (8.5-10.1); CARBON DIOXIDE,CO2 31.5 mmol/L (21.0-32.0); CREATININE 0.92 mg/dL (0.51-1.17); EST CRCL DRUG DOSING (CG) 29.78 mL/min; POTASSIUM,K 3.6 mmol/L (3.5-5.1)
[2022-11-07] MEDS ORDERED: Non-Formulary Medication 1 Each PO SCH (08:00)
[2022-11-07 11:54] LABS: BASOPHILS ABSOLUTE AUTO 0.02 K/uL (0.00-0.20); BASOPHILS PERCENT AUTO 0.3 % (0.0-2.0); EOSINOPHILS ABSOLUTE AUTO 0.19 K/uL (0.00-0.50); EOSINOPHILS PERCENT AUTO 2.7 % (0.0-5.0); HEMATOCRIT 33.9 % (34.0-46.0); HEMOGLOBIN 10.4 g/dL (11.7-15.5); LYMPHOCYTES ABSOLUTE AUTO 1.51 K/uL (0.50-3.50); LYMPHOCYTES PERCENT AUTO 21.7 % (10.0-50.0); MEAN CORPUSCULAR HGB CONC 30.7 g/dL (31.7-36.0); MEAN CORPUSCULAR VOLUME 97.7 fL (84.0-98.0); NEUTROPHILS ABSOLUTE AUTO 4.55 K/uL (1.40-7.00); NEUTROPHILS PERCENT AUTO 65.3 % (45.0-80.0); PLATELET COUNT,PLT 223 K/uL (150-350); RED BLOOD CELL COUNT 3.47 M/uL (3.77-5.09); RED CELL DISTRIBUTION WIDTH 15.6 % (11.2-14.1)
[2022-11-07] MEDS: Acetaminophen 325 MG Tab PO PRN (11:57)
[2022-11-07] MEDS: Levothyroxine 25 MCG Tab PO SCH (11:58)
[2022-11-07] MEDS: Pantoprazole 40 MG Tab.CR PO SCH (11:58)
[2022-11-07 12:12] LABS: LACTIC ACID 0.8 mmol/L (0.4-2.0)
[2022-11-07] MEDS ORDERED: Sodium Chloride 0.9% 1,000 ML IV SCH (16:45)
[2022-11-07] MEDS: Potassium Chloride Riders 10 MEQ in Premix Bag 1 BAG IV SCH ×2 (17:13→18:16)
[2022-11-07] MEDS: Donepezil 10 MG Tab PO SCH (20:40)
[2022-11-07] MEDS: Rosuvastatin 10 MG Tab PO SCH (20:40)
[2022-11-08] MEDS ORDERED: Sodium Chloride 0.9% 1,000 ML IV SCH (00:15)
[2022-11-08 07:35] LABS: BASOPHILS ABSOLUTE AUTO 0.03 K/uL (0.00-0.20); BASOPHILS PERCENT AUTO 0.3 % (0.0-2.0); EOSINOPHILS ABSOLUTE AUTO 0.08 K/uL (0.00-0.50); EOSINOPHILS PERCENT AUTO 0.9 % (0.0-5.0); HEMATOCRIT 32.5 % (34.0-46.0); HEMOGLOBIN 9.7 g/dL (11.7-15.5); LYMPHOCYTES ABSOLUTE AUTO 1.64 K/uL (0.50-3.50); LYMPHOCYTES PERCENT AUTO 18.7 % (10.0-50.0); MEAN CORPUSCULAR HEMOGLOBIN 29.6 pg (28.2-33.3); MEAN CORPUSCULAR HGB CONC 29.8 g/dL (31.7-36.0); MEAN CORPUSCULAR VOLUME 99.1 fL (84.0-98.0); MONOCYTES ABSOLUTE AUTO 0.83 K/uL (0.00-1.00); MONOCYTES PERCENT AUTO 9.4 % (2.0-14.0); NEUTROPHILS ABSOLUTE AUTO 6.21 K/uL (1.40-7.00); NEUTROPHILS PERCENT AUTO 70.7 % (45.0-80.0); PLATELET COUNT,PLT 219 K/uL (150-350); RED BLOOD CELL COUNT 3.28 M/uL (3.77-5.09); RED CELL DISTRIBUTION WIDTH 15.7 % (11.2-14.1); WHITE BLOOD CELL COUNT,WBC 8.8 K/uL (4.0-10.2)
[2022-11-08] MEDS: Enoxaparin 30 MG/0.3 ML Syringe SUBCUT SCH (07:47)
[2022-11-08] MEDS: Furosemide 40 MG/4 ML VIAL IVPUSH SCH (07:47)
[2022-11-08] MEDS: Pramipexole 0.125 MG Tab PO SCH ×3 (09:02→19:37)
[2022-11-08] MEDS: Pantoprazole 40 MG Tab.CR PO SCH ×2 (09:02→12:08)
[2022-11-08] MEDS: Levothyroxine 25 MCG Tab PO SCH ×2 (09:02→12:09)
[2022-11-08] MEDS: Docusate Sodium 100 MG Cap PO SCH ×2 (09:02→12:09)
[2022-11-08] MEDS: Ferrous Sulfate 325 MG Tab PO SCH ×2 (09:02→12:08)
[2022-11-08] MEDS: Memantine 10 MG Tab PO SCH ×2 (09:02→19:37)
[2022-11-08] MEDS: Multivitamin Tab PO SCH (09:03)
[2022-11-08] MEDS: Zinc (Zinc Gluconate) 50 MG Tab PO SCH (09:03)
[2022-11-08] MEDS: Acetaminophen 325 MG Tab PO PRN (12:09)
[2022-11-08 13:07] LABS: CALCIUM 8.2 mg/dL (8.5-10.1); CARBON DIOXIDE,CO2 26.4 mmol/L (21.0-32.0); CREATININE 1.02 mg/dL (0.51-1.17); EST CRCL DRUG DOSING (CG) 26.86 mL/min; POTASSIUM,K 3.9 mmol/L (3.5-5.1)
[2022-11-08 13:13] LABS: ANION GAP 13.5 meq/L (7-15)
[2022-11-08] MEDS ORDERED: Piperacillin/Tazobactam 3.375 GM in Sodium Chloride 0.9% 100 ML IV SCH (17:00)
[2022-11-08] MEDS: Sodium Chloride 0.9% 10 ML Syringe FLUSH PRN (18:34)
[2022-11-08] MEDS: Piperacillin/Tazobactam 2.25 GM in Sodium Chloride 0.9% 100 ML IV SCH ×2 (18:34→23:54)
[2022-11-08] MEDS: Rosuvastatin 10 MG Tab PO SCH (19:37)
[2022-11-08] MEDS: Donepezil 10 MG Tab PO SCH (19:37)
[2022-11-09] MEDS: Piperacillin/Tazobactam 2.25 GM in Sodium Chloride 0.9% 100 ML IV SCH (05:15)
[2022-11-09] MEDS: Levothyroxine 25 MCG Tab PO SCH (07:43)
[2022-11-09] MEDS: Memantine 10 MG Tab PO SCH (07:43)
[2022-11-09] MEDS: Enoxaparin 30 MG/0.3 ML Syringe SUBCUT SCH (07:43)
[2022-11-09] MEDS: Pramipexole 0.125 MG Tab PO SCH (07:43)
[2022-11-09] MEDS: Multivitamin Tab PO SCH (07:43)
[2022-11-09] MEDS: Pantoprazole 40 MG Tab.CR PO SCH (07:43)
[2022-11-09] MEDS: Furosemide 40 MG/4 ML VIAL IVPUSH SCH (07:44)
[2022-11-09] MEDS: Docusate Sodium 100 MG Cap PO SCH (07:44)
[2022-11-09] MEDS: Ferrous Sulfate 325 MG Tab PO SCH (07:44)
[2022-11-09] MEDS: Zinc (Zinc Gluconate) 50 MG Tab PO SCH (07:44)
[2022-11-09] MEDS: Sodium Chloride 0.9% 10 ML Syringe FLUSH PRN (07:45)
[2022-11-09 08:29] LABS: ANION GAP 9.6 meq/L (7-15); CALCIUM 8.5 mg/dL (8.5-10.1); CARBON DIOXIDE,CO2 28.4 mmol/L (21.0-32.0); CREATININE 1.13 mg/dL (0.51-1.17); EST CRCL DRUG DOSING (CG) 24.24 mL/min; POTASSIUM,K 3.6 mmol/L (3.5-5.1)
[2022-11-09 13:13] VITALS: BP 143/66; PULSE 97
== END 2022-11-09 14:00 | DRG 690 ==
LOC: LL.ED 15:18 → LL.MS 16:15
PROVIDERS: ADMIT Physician Assistant; ATTEND Family Medicine
DX: N30.00 Acute cystitis without hematuria (principal); I42.9 Cardiomyopathy, unspecified; E11.649 Type 2 diabetes mellitus with hypoglycemia without coma; I50.9 Heart failure, unspecified; E16.2 Hypoglycemia, unspecified; Z51.5 Encounter for palliative care; I48.91 Unspecified atrial fibrillation; I25.10 Atherosclerotic heart disease of native coronary artery without angina pectoris; E78.00 Pure hypercholesterolemia, unspecified; N39.0 Urinary tract infection, site not specified; F03.90 Unspecified dementia, unspecified severity, without behavioral disturbance, psychotic disturbance, mood disturbance, and anxiety; R06.02 Shortness of breath; I11.0 Hypertensive heart disease with heart failure; Z96.652 Presence of left artificial knee joint; B95.2 Enterococcus as the cause of diseases classified elsewhere; Z66 Do not resuscitate; J44.9 Chronic obstructive pulmonary disease, unspecified; K59.09 Other constipation; K21.9 Gastro-esophageal reflux disease without esophagitis; M19.90 Unspecified osteoarthritis, unspecified site; G89.29 Other chronic pain; M54.9 Dorsalgia, unspecified; G30.9 Alzheimer's disease, unspecified; F02.80 Dementia in other diseases classified elsewhere, unspecified severity, without behavioral disturbance, psychotic disturbance, mood disturbance, and anxiety; E11.9 Type 2 diabetes mellitus without complications; E66.9 Obesity, unspecified; E03.9 Hypothyroidism, unspecified; D50.9 Iron deficiency anemia, unspecified; Z98.49 Cataract extraction status, unspecified eye; Z90.49 Acquired absence of other specified parts of digestive tract; Z86.73 Personal history of transient ischemic attack (TIA), and cerebral infarction without residual deficits; Z98.890 Other specified postprocedural states; Z86.010 Personal history of colon polyps; Z79.4 Long term (current) use of insulin; Z79.899 Other long term (current) drug therapy
CPT/HCPCS: 36415; 51702; 71045; 80048; 80053; 81001; 82947; 83605; 83880; 85025; 85610; 87086; 87088; 87186; 96374; 96375; 99223; 99232; 99233; 99238; 99285-25; A9270-GY; J1650; J1940; J2543; J3480; J3490; J7030